=== PATIENT | female | born 1940 | race Caucasian/White ===

== ENCOUNTER 2020-12-05 10:33 | Outpatient (CLI) | payer MEDICARE, MEDICAID | END 2020-12-05 10:34 | disposition critical access hospital (66) | LOC: EMS 10:33 | DX: Z04.3 Encounter for examination and observation following other accident (principal); R53.83 Other fatigue | CPT/HCPCS: A0425; A0429 ==

== ENCOUNTER 2020-12-05 10:54 | Emergency (ER) | payer MEDICARE, MEDICAID ==
--- NOTE | 2020-12-05 11:02 | ED Physician Documentation ---
PD HPI Fall - Stated complaint Stated Complaint: GLF - History obtained from History obtained from: Patient, EMS - History of Present Illness Mechanism of injury: Unknown (patient down on floor, awake, near walker at care facility. History of unsteady with occ falls. Unwitnessed fall. No apparent LOC. Had some pain in knee and on exam, some pain with ROM of the neck. Not on anticoag. Denies head pain.) Fall distance: Standing position Where injury occurred: Other ([facility] care facility) Timing - onset: Today (within the past 1-2 hours was when last checked on) Injury(ies) location: Neck, Left Lower Extremity (some pain anterior knee.) Associated symptoms: AMS (seems baseline level of short term memory, but alert, c/w her dementia.). No: LOC, Nausea / vomiting Worsens with: Movement (of left knee and some pain on ROM of the neck.) Contributing factors: No: Anticoagulated, Intoxicated Similar symptoms before: Has not had sx before Recently seen: Not recently seen Review of Systems Unable to obtain: Dementia, Other (info from care facility) Constitutional: reports: Fatigue. denies: Fever, Weight Loss Cardiac: denies: Chest pain / pressure Respiratory: denies: Dyspnea, Cough GI: denies: Abdominal Pain, Vomiting Skin: denies: Abrasion (s), Laceration (s) Musculoskeletal: reports: Neck pain. denies: Back pain Neurologic: denies: Headache PD PAST MEDICAL HISTORY - Past Medical History Cardiovascular: Hypertension Respiratory: None Neuro: Dementia Endocrine/Autoimmune: None - Past Surgical History Cardiovascular: Pacemaker - Present Medications Home Medications: Ambulatory Orders Medication Instructions Recorded Confirmed Aspirin [[place] Aspirin] 81 mg PO DAILY 12/05/20 12/05/20 Donepezil [Aricept] 5 mg PO DAILY 12/05/20 12/05/20 Isosorbide Mononitrate ER [Imdur] 60 mg PO DAILY 12/05/20 12/05/20 Venlafaxine HCl [Effexor Xr] 150 mg PO DAILY 12/05/20 12/05/20 gemfibroziL [Lopid] 600 mg PO BID 12/05/20 12/05/20 - Allergies Allergies/Adverse Reactions: Allergies Allergy/AdvReac Type Severity Reaction Status Date / Time Qsuvpjj-Fsu-Ssr Reductase Allergy Unknown Verified 12/05/20 11:01 Inhibitor PD ED PE NORMAL - Vitals Vital signs reviewed: Yes - General General: No acute distress, Well developed/nourished. No: Alert and oriented X 3 (oriented to person and place. Poor short term memory of events this morning. ) - HEENT HEENT: Atraumatic - Neck Neck: Supple, no meningeal sign, No bony TTP (but some tender in lower left neck muscles. ), No adenopathy - Cardiac Cardiac: RRR, No murmur - Respiratory Respiratory: Clear bilaterally, Other (no chestwall tenderness. ) - Abdomen Abdomen: Soft, Non tender - Back Back: No CVA TTP, No spinal TTP - Derm Derm: Normal color, Warm and dry - Extremities Extremities: No deformity, No edema, No calf tenderness / cord, Other (left knee with some anterior tenderness. No deformity. No effusion. No noted laxity nor pain with cruciate/collateral stress testing. ) - Neuro Neuro: No motor deficit, No sensory deficit, Normal speech Eye Opening: Spontaneous Motor: Obeys Commands Verbal: Oriented GCS Score: 15 Results - Vitals Vitals: Vital Signs - 24 hr 12/05/20 12/05/20 12/05/20 11:04 13:09 14:42 Temperature 36.8 C 36.8 C Heart Rate 66 67 78 Respiratory 16 17 18 Rate Blood Pressure 122/100 H 137/71 H 134/79 H O2 Saturation 95 97 100 Oxygen O2 Source Room air - Rads (name of study) left knee Radiology: Prelim report reviewed (no acute bony process), See rad report head CT Radiology: Prelim report reviewed (age related changes; no acute injury), See rad report cervical CT Radiology: Prelim report reviewed (no fractures nor other acute osseous process or acute subluxation. ), See rad report PD MEDICAL DECISION MAKING - ED course Complexity details: reviewed results, considered differential (no notable injuries. Unwitnessed fall so unknown LOC/etc. Vitals good and she was found awake/attentive, so likely mechanical fall. Has pacemaker. ), d/w patient Departure - Departure Disposition: 01 Home, Self Care Clinical Impression: Neck pain Fall Qualifiers: Encounter type: initial encounter Qualified Code(s): W19.XXXA - Unspecified fall, initial encounter Knee strain Qualifiers: Encounter type: initial encounter Laterality: left Qualified Code(s): S86.912A - Strain of unspecified muscle(s) and tendon(s) at lower leg level, left leg, initial encounter Condition: Stable Record reviewed to determine appropriate education?: Yes Instructions: ED Sprain Knee, ED Sprain Strain Neck Comments: No signs of acute injury to the head or neck or the knee. There is some arthritis in the neck and the knee on your imaging. I would suggest continue usual medicines. Add Tylenol 500 mg 4 times a day for the next several days. Recheck if not better over the next few days. Discharge Date/Time: 12/05/20 14:43
[2020-12-05] MEDS ORDERED: ACETAMINOPHEN 325 MG TABLET PO STA (11:25)
--- NOTE | 2020-12-05 12:25 | XRAY Report ---
PROCEDURE: Knee 3 View LT INDICATIONS: fall with knee pain TECHNIQUE: 3 views of the left knee(s) were acquired. COMPARISON: None. FINDINGS: Bones: No fractures or dislocations. No suspicious bony lesions. Mild degenerative osteophytosis t hroughout the knee most prominent within the patellofemoral compartment Soft tissues: No joint effusion. No suspicious soft tissue calcifications. Small patellar enthesop hytes at the superior and inferior pole of the talus. IMPRESSION: No acute osseous abnormality. Reviewed by: Scar Jett DO on 12/05/2020 11:23 AM [facility] Approved by: Scar Jett DO on 12/05/2020 11:23 AM [facility] Station ID: [id number]
--- NOTE | 2020-12-05 12:27 | CT Report ---
PROCEDURE: HEAD WO INDICATIONS: fall with some posterior headache, mild TECHNIQUE: Noncontrast 4.5 mm thick angled axial sections acquired from the foramen magnum to the vertex. For r adiation dose reduction, the following was used: automated exposure control, adjustment of mA and/or kV according to patient size. COMPARISON: None. FINDINGS: Image quality: Excellent. CSF spaces: Basal cisterns are patent. No extra-axial fluid collections. Ventricles are normal in size and shape. Brain: No midline shift. No intracranial masses or hemorrhage. There is diffuse periventricular an d deep white matter hypoattenuation most consistent with progressive ischemic changes. Bojorquez-white mat ter interface is normal. Skull and face: Calvarium and visualized facial bones are intact, without suspicious lesions. Sinuses: Visualized sinuses and mastoids are clear. IMPRESSION: Findings consistent with microvascular ischemic changes without evidence of an acute intracranial abn ormality. Reviewed by: Scar Jett DO on 12/05/2020 11:25 AM [facility] Approved by: Scar Jett DO on 12/05/2020 11:25 AM [facility] Station ID: [id number]
--- NOTE | 2020-12-05 12:31 | CT Report ---
PROCEDURE: CERVICAL SPINE WO INDICATIONS: fall with some neck pain TECHNIQUE: Noncontrast 3 mm thick sections acquired from the skull base to the T4 level. Sagittal and coronal r eformats were then constructed. For radiation dose reduction, the following was used: automated exp osure control, adjustment of mA and/or kV according to patient size. COMPARISON: None. FINDINGS: Image quality: Excellent. Bones: No fractures or dislocations. There is reversal of the normal cervical lordosis. Visualized superior ribs are intact. Multilevel cervical spine degenerative changes. This includes at least mod erate intervertebral disc space loss at C4 C5-C6 C7 with endplate degenerative changes and calcified discs. There is mild spinal canal stenosis at these levels. There is also at least mild neural forami nal stenosis. Soft tissues: Prevertebral soft tissues are normal in thickness. No paravertebral hematomas. No ap ical pneumothoraces. IMPRESSION: No acute fracture or traumatic subluxation. Moderate multilevel cervical spondylopathy. Reviewed by: Scar Jett DO on 12/05/2020 11:30 AM [facility] Approved by: Scar Jtet DO on 12/05/2020 11:30 AM [facility] Station ID: [id number]
[2020-12-05 14:43] VITALS: BP 134/79
== END 2020-12-05 14:43 | disposition home or self-care (01) ==
LOC: ED 10:54
DX: S86.912A Strain of unspecified muscle(s) and tendon(s) at lower leg level, left leg, initial encounter (principal); W19.XXXA Unspecified fall, initial encounter; Y92.099 Unspecified place in other non-institutional residence as the place of occurrence of the external cause; M54.2 Cervicalgia; F03.90 Unspecified dementia, unspecified severity, without behavioral disturbance, psychotic disturbance, mood disturbance, and anxiety; I10 Essential (primary) hypertension; Z95.0 Presence of cardiac pacemaker
CPT/HCPCS: 70450; 72125; 73562; 99282; 99284; A9270

== ENCOUNTER 2020-12-05 14:44 | Outpatient (CLI) | payer MEDICARE, MEDICAID | END 2020-12-05 14:45 | disposition home or self-care (01) | LOC: EMS 14:44 | PROVIDERS: ATTEND Emergency Medicine | DX: F03.90 Unspecified dementia, unspecified severity, without behavioral disturbance, psychotic disturbance, mood disturbance, and anxiety (principal) | CPT/HCPCS: A0425; A0428 ==

== ENCOUNTER 2022-08-05 16:06 | Outpatient (CLI) | payer MEDICARE, MEDICAID | END 2022-08-05 16:07 | disposition critical access hospital (66) | LOC: EMS 16:06 | DX: S69.91XA Unspecified injury of right wrist, hand and finger(s), initial encounter (principal); S80.01XA Contusion of right knee, initial encounter; W18.30XA Fall on same level, unspecified, initial encounter; Y92.199 Unspecified place in other specified residential institution as the place of occurrence of the external cause | CPT/HCPCS: A0425; A0429 ==

== ENCOUNTER 2022-08-05 16:20 | Emergency (ER) | payer MEDICARE, MEDICAID ==
--- NOTE | 2022-08-05 17:00 | ED Physician Documentation ---
PD HPI MAJOR TRAUMA - Stated complaint Stated Complaint: GLF - Chief complaint Chief Complaint: Trauma Ext - History obtained from History obtained from: EMS - Additional information Additional information: 82-year-old woman brought in from dementia unit with reported fall yesterday, ground-level fall. I am unable to elicit any history from the patient due to profound dementia. The concern is for a nasal injury, right hand and right knee injuries. Reportedly has been ambulatory. Review of Systems Unable to obtain: Dementia PD PAST MEDICAL HISTORY - Past Medical History Cardiovascular: Hypertension Respiratory: None Neuro: Dementia Endocrine/Autoimmune: None - Past Surgical History Cardiovascular: Pacemaker - Present Medications Home Medications: Ambulatory Orders Medication Instructions Recorded Confirmed Aspirin [[place] Aspirin] 81 mg PO DAILY 12/05/20 12/05/20 Donepezil [Aricept] 5 mg PO DAILY 12/05/20 12/05/20 Isosorbide Mononitrate ER [Imdur] 60 mg PO DAILY 12/05/20 12/05/20 Venlafaxine HCl [Effexor Xr] 150 mg PO DAILY 12/05/20 12/05/20 gemfibroziL [Lopid] 600 mg PO BID 12/05/20 12/05/20 - Allergies Allergies/Adverse Reactions: Allergies Allergy/AdvReac Type Severity Reaction Status Date / Time atenolol Allergy Unknown Verified 08/05/22 16:46 duloxetine Allergy Unknown Verified 08/05/22 16:46 lorazepam [From Ativan] Allergy Unknown Verified 08/05/22 16:46 Wbllowe-ILY-FdE Reductase Allergy Unknown Verified 08/05/22 16:46 Inhibitor [Jsqepaw-Jvs-Jiz Reductase Inhibitor] - Social History Does the pt smoke?: No Smoking Status: Never smoker PD ED PE NORMAL - Vitals Vital signs reviewed: Yes - General General: Other (She is prevailing demented, relatively uncooperative but also nonverbal.) - HEENT HEENT: PERRL, EOMI, Other (An abrasion with swelling over the bridge of the nose) - Neck Neck: No bony TTP - Back Back: No CVA TTP, No spinal TTP - Derm Derm: Normal color, Warm and dry - Extremities Extremities: Other (There is ecchymosis with mild tenderness over the fourth and fifth metacarpals of the right hand. There is significant bruising and swelling of the right knee without obvious tenderness.) - Neuro Eye Opening: Spontaneous Motor: Localizes to Pain Verbal: Incomprehensible GCS Score: 11 Results - Vitals Vitals: Vital Signs - 24 hr 08/05/22 16:38 Temperature 37.7 C Heart Rate 71 Respiratory 14 Rate Blood Pressure 142/56 H O2 Saturation 98 Oxygen O2 Source Room air - Rads (name of study) Three-view x-ray of the right knee demonstrates a comminuted patellar fracture Radiology: Final report received, EMP read indepedently Three-view x-ray of the right hand is negative Radiology: Final report received, EMP read indepedently CT of the head and C-spine with and without trauma Radiology: Final report received, EMP read indepedently PD Medical Decision Making - ED course Complexity details: d/w family (I did discuss with point of contact, Ms. Scruggs on the chart to understand the diagnosis, need for follow-up.), d/w outside solar sales consultant (Discussed case by phone with on-call orthopedics (Melissa) who agrees with knee immobilizer and outpatient follow-up.) Departure - Departure Disposition: 01 Home, Self Care Clinical Impression: Ground-level fall Contusion of right hand Qualifiers: Encounter type: initial encounter Qualified Code(s): S60.221A - Contusion of right hand, initial encounter Severe dementia Qualifiers: Dementia type: unspecified type Dementia behavioral or psychological symptom: unspecified whether behavioral, psychotic, or mood disturbance or anxiety Qualified Code(s): F03.C0 - Unspecified dementia, severe, without behavioral disturbance, psychotic disturbance, mood disturbance, and anxiety Facial injury Qualifiers: Encounter type: initial encounter Qualified Code(s): S09.93XA - Unspecified injury of face, initial encounter Right patella fracture Qualifiers: Encounter type: initial encounter Fracture type: closed Fracture morphology: transverse Fracture alignment: displaced Qualified Code(s): S82.031A - Displaced transverse fracture of right patella, initial encounter for closed fracture Condition: Good Record reviewed to determine appropriate education?: Yes Instructions: ED Fx Patella Follow-Up: [facility] [Provider Group] - Within 1 week Comments: For the patella fracture, is much as possible she should keep the splint on. My suspicion is that may be difficult, and if she takes it off I do not think the end of the world. She should follow-up with the orthopedics office that week or so. Tylenol as needed for pain. CT of the head, face, neck were without trauma. X-ray of the right hand was negative.
--- NOTE | 2022-08-05 18:21 | XRAY Report ---
PROCEDURE: Hand 3 View RT INDICATIONS: hand inj TECHNIQUE: 3 views of the hand acquired. COMPARISON: None. FINDINGS: Bones: No acute fractures or dislocations. No suspicious bony lesions. Generalized osteopenia. Fin gers are mildly flexed throughout the exam. Degenerative changes are most prominent at the first carpometacarpal joint. Soft tissues: No suspicious soft tissue calcifications. IMPRESSION: No acute osseous abnormality. If there is clinical concern or persistent symptoms, additional imaging such as repeat radiographs or advanced imaging (e.g. CT, MRI) may be helpful for further evaluation. Reviewed by: Ellis Aguilar MD on 08/05/2022 6:20 PM PST Approved by: Ellis Aguilar MD on 08/05/2022 6:20 PM PST Station ID: [id number]
--- NOTE | 2022-08-05 18:23 | XRAY Report ---
PROCEDURE: Knee 3 View RT INDICATIONS: knee inj TECHNIQUE: 3 views of the right knee were acquired. COMPARISON: None. FINDINGS: Bones: There is a comminuted minimally displaced transverse fracture of the patella. No suspicious b lee lesions. Generalized osteopenia. Soft tissues: Moderate joint effusion. No suspicious soft tissue calcifications. IMPRESSION: Comminuted minimally displaced intra-articular fracture is seen involving the mid to inf erior patella. Moderate joint effusion. Reviewed by: Ellis Aguilar MD on 08/05/2022 6:21 PM PST Approved by: Ellis Aguilar MD on 08/05/2022 6:21 PM PST Station ID: [id number]
--- NOTE | 2022-08-05 18:32 | CT Report ---
PROCEDURE: HEAD WO INDICATIONS: head inj TECHNIQUE: Noncontrast 4.5 mm thick angled axial sections acquired from the foramen magnum to the vertex. For r adiation dose reduction, the following was used: automated exposure control, adjustment of mA and/or kV according to patient size. COMPARISON: CT head 12/05/2020. FINDINGS: Image quality: Excellent. CSF spaces: Basal cisterns are patent. No extra-axial fluid collections. Ventricles are normal in size and shape. Brain: No midline shift. No intracranial masses or acute hemorrhage. Hypodensities in the subcortic al and periventricular white matter are consistent with chronic microvascular ischemic changes. Skull and face: Calvarium and visualized facial bones are intact, without suspicious lesions. Sinuses: Visualized sinuses and mastoids are clear. IMPRESSION: 1.No acute intracranial abnormality. 2.Mild chronic microvascular ischemic changes. Reviewed by: Ellis Aguilar MD on 08/05/2022 6:31 PM PST Approved by: Ellis Aguilar MD on 08/05/2022 6:31 PM PST Station ID: [id number]
--- NOTE | 2022-08-05 18:35 | CT Report ---
PROCEDURE: CERVICAL SPINE WO INDICATIONS: head inj TECHNIQUE: Noncontrast 3 mm thick sections acquired from the skull base to the T4 level. Sagittal and coronal r eformats were then constructed. For radiation dose reduction, the following was used: automated exp osure control, adjustment of mA and/or kV according to patient size. COMPARISON: Cervical spine CT 12/05/2020. FINDINGS: Image quality: Excellent. Bones: No fractures or dislocations. Visualized superior ribs are intact. Multilevel disc space na rrowing and degenerative endplate changes are seen. There is multilevel vertebral joint and facet hyp ertrophy. Soft tissues: Prevertebral soft tissues are normal in thickness. No paravertebral hematomas. No ap ical pneumothoraces. IMPRESSION: No acute cervical spine fracture or subluxation. Multilevel spondylosis. Reviewed by: Ellis Aguilar MD on 08/05/2022 6:34 PM PST Approved by: Ellis Aguilar MD on 08/05/2022 6:34 PM PST Station ID: [id number]
--- NOTE | 2022-08-05 18:38 | CT Report ---
PROCEDURE: MAXILLOFACIAL WO INDICATIONS: face innj TECHNIQUE: Noncontrast 1.5 mm thick axial images acquired from the mandible through the frontal sinuses, with co valery and sagittal reformatting. For radiation dose reduction, the following was used: automated ex posure control, adjustment of mA and/or kV according to patient size. COMPARISON: None. FINDINGS: Image quality: Excellent. Bones and teeth: Orbital griffith are intact. Sinus griffith show no fracture or deformity. Nasal bones and septum are intact. Visualized portions of the mandible demonstrate no fractures or subluxation. Zygomatic arches are intact. Pterygoid plates are intact. Visualized portions of the skull base an d auditory canals are intact. Degenerative changes are seen in the cervical spine. Sinuses: Paranasal sinuses are aerated, without fluid levels, mucosal thickening, or mucoceles. Mas toid air cells are aerated. Soft tissues: No edema, masses, or fluid collections. No enlarged lymph nodes. No soft tissue lace rations or debris. Vascular: Visualized vascular structures appear normal in the absence of contrast. Bony vascular fo ramina and canals are intact. IMPRESSION: No acute facial fracture identified. Reviewed by: Ellis Aguilar MD on 08/05/2022 6:36 PM PST Approved by: Ellis Aguilar MD on 08/05/2022 6:36 PM PST Station ID: [id number]
[2022-08-05 21:44] VITALS: BP 129/89
== END 2022-08-05 21:38 | disposition home or self-care (01) ==
LOC: EDUNIT# → ED 16:20
DX: S60.221A Contusion of right hand, initial encounter (principal); S00.31XA Abrasion of nose, initial encounter; S82.031A Displaced transverse fracture of right patella, initial encounter for closed fracture; W18.30XA Fall on same level, unspecified, initial encounter; F03.90 Unspecified dementia, unspecified severity, without behavioral disturbance, psychotic disturbance, mood disturbance, and anxiety; R41.0 Disorientation, unspecified
CPT/HCPCS: 99283; 99284

== ENCOUNTER 2022-08-05 21:39 | Outpatient (CLI) | payer MEDICARE, MEDICAID | END 2022-08-05 21:40 | disposition home or self-care (01) | LOC: EMS 21:39 | PROVIDERS: ATTEND Emergency Medicine | DX: S82.001A Unspecified fracture of right patella, initial encounter for closed fracture (principal); W19.XXXA Unspecified fall, initial encounter; F03.90 Unspecified dementia, unspecified severity, without behavioral disturbance, psychotic disturbance, mood disturbance, and anxiety; R41.0 Disorientation, unspecified | CPT/HCPCS: A0425; A0428 ==

== ENCOUNTER 2022-09-21 09:28 | Outpatient (CLI) | payer MEDICARE, MEDICAID ==
--- NOTE | 2022-09-21 10:34 | XRAY Report ---
PROCEDURE: Knee 3 View RT INDICATIONS: RIGHT PATELLA FRACTURE TECHNIQUE: 3 views of the right knee(s) were acquired. COMPARISON: None. FINDINGS: Bones: Subacute comminuted minimally displaced patellar fracture. No other fractures or dislocations . No suspicious bony lesions. Soft tissues: No joint effusion. No suspicious soft tissue calcifications. IMPRESSION: Subacute, comminuted, minimally displaced patellar fracture. Reviewed by: Melchor Nair MD on 09/21/2022 10:33 AM [facility] Approved by: Melchor Nair MD on 09/21/2022 10:33 AM [facility] Station ID: [id number]
== END 2022-09-21 09:29 | disposition home or self-care (01) ==
LOC: DI 09:28
PROVIDERS: ATTEND Nurse Practitioner Family
DX: S82.041A Displaced comminuted fracture of right patella, initial encounter for closed fracture (principal)

== ENCOUNTER 2022-10-12 09:18 | Outpatient (CLI) | payer MEDICAID | END 2022-10-12 23:59 | disposition critical access hospital (66) | LOC: EMS 09:18 | DX: R41.82 Altered mental status, unspecified (principal); R46.89 Other symptoms and signs involving appearance and behavior; R56.9 Unspecified convulsions | CPT/HCPCS: A0425; A0429; A0999 ==

== ENCOUNTER 2022-10-12 09:37 | Emergency (ER) | payer MEDICARE, MEDICAID ==
[2022-10-12 10:02] LABS: BASOPHILS % (AUTO) 0.7 %; EOSINOPHILS % (AUTO) 0.4 %; HCT - HEMATOCRIT 36.9 % (37.0-47.0); HGB - HEMOGLOBIN 11.9 g/dL (12.0-16.0); LYMPHOCYTES # (AUTO) 1.5 10^3/uL (1.5-3.5); LYMPHOCYTES % (AUTO) 26.3 %; MEAN CORPUSCULAR HEMOGLOBIN 31.1 pg (27.0-31.0); MEAN CORPUSCULAR HGB CONC 32.2 g/dL (32.0-36.0); MEAN CORPUSCULAR VOLUME 96.3 fL (81.0-99.0); MONOCYTES # (AUTO) 0.4 10^3/uL (0.0-1.0); MONOCYTES % (AUTO) 6.9 %; NEUTROPHILS # (AUTO) 3.5 10^3/uL (1.5-6.6); NEUTROPHILS % (AUTO) 63.9 %; PLT - PLATELET COUNT 265 10^3/uL (130-450); RED BLOOD COUNT 3.83 10^6/uL (4.20-5.40); RED CELL DISTRIBUTION WIDTH 13.4 % (12.0-15.0); WHITE BLOOD COUNT 5.5 x10^3/uL (4.8-10.8)
[2022-10-12 10:15] LABS: ALBUMIN 3.4 g/dL (3.2-5.5); BILIRUBIN,TOTAL 0.5 mg/dL (0.2-1.0); CALCIUM 9.2 mg/dL (8.5-10.3); CREATININE 1.1 mg/dL (0.4-1.0); POTASSIUM 3.6 mmol/L (3.5-5.0); TOTAL PROTEIN 7.6 g/dL (6.7-8.2)
[2022-10-12 10:16] LABS: ALBUMIN/GLOBULIN RATIO 0.8 (1.0-2.2)
--- NOTE | 2022-10-12 10:22 | CT Report ---
PROCEDURE: HEAD WO INDICATIONS: seizure like activity TECHNIQUE: Noncontrast 4.5 mm thick angled axial sections acquired from the foramen magnum to the vertex. For r adiation dose reduction, the following was used: automated exposure control, adjustment of mA and/or kV according to patient size. COMPARISON: 08/05/2022. FINDINGS: Image quality: Excellent. CSF spaces: Basal cisterns are patent. No extra-axial fluid collections. Ventricles are normal in size and shape. Brain: No midline shift. There is age-related volume loss and mild to moderate periventricular and deep white matter chronic small vessel ischemic changes. No intracranial masses or hemorrhage. Bojorquez- white matter interface is normal. Skull and face: Calvarium and visualized facial bones are intact, without suspicious lesions. Sinuses: Visualized sinuses and mastoids are clear. IMPRESSION: No CT evidence of acute intracranial abnormalities. No significant changes from previous study. Reviewed by: Gen Chiang MD on 10/12/2022 9:21 AM [facility] Approved by: Gen Chiang MD on 10/12/2022 9:21 AM [facility] Station ID: [id number]
--- NOTE | 2022-10-12 10:28 | ED Physician Documentation ---
History of Present Illness - Stated complaint Stated Complaint: AMS - Chief complaint Chief Complaint: Neuro - History obtained from History obtained from: EMS - Additonal information Additional information: The patient is brought to the emergency department by EMS for chief complaint of possible seizure. The patient lives in the memory care unit, and had just been wheeled down to breakfast when she suddenly cried out and then had a brief episode of shaking. It is not clear whether the patient was awake during the shaking episode or not, though medics say it sounds like she was. She has no history of seizures and they do not find any incontinence or bite moya on her tongue. There was no postictal for her head and in fact, the patient was back at baseline, which is awake and calm, but nonverbal/noncommunicative, now. The staff at home have reported no recent illness. No other complaints at this time. PD PAST MEDICAL HISTORY - Past Medical History Cardiovascular: Hypertension Respiratory: None Neuro: Dementia Endocrine/Autoimmune: None - Past Surgical History Cardiovascular: Pacemaker - Present Medications Home Medications: Ambulatory Orders Medication Instructions Recorded Confirmed Aspirin [[place]orte Aspirin] 81 mg PO DAILY 12/05/20 12/05/20 Donepezil [Aricept] 5 mg PO DAILY 12/05/20 12/05/20 Isosorbide Mononitrate ER [Imdur] 60 mg PO DAILY 12/05/20 12/05/20 Venlafaxine HCl [Effexor Xr] 150 mg PO DAILY 12/05/20 12/05/20 gemfibroziL [Lopid] 600 mg PO BID 12/05/20 12/05/20 - Allergies Allergies/Adverse Reactions: Allergies Allergy/AdvReac Type Severity Reaction Status Date / Time atenolol Allergy Unknown Verified 10/12/22 09:47 duloxetine Allergy Unknown Verified 10/12/22 09:47 lorazepam [From Ativan] Allergy Unknown Verified 10/12/22 09:47 Llgxhuz-HHZ-HdV Reductase Allergy Unknown Verified 10/12/22 09:47 Inhibitor [Kyycnzj-Aol-Snw Reductase Inhibitor] - Social History Does the pt smoke?: No Smoking Status: Never smoker PD ED PE NORMAL - Vitals Vital signs reviewed: Yes - General General: No acute distress, Well developed/nourished, Other (Awake, but does not make eye contact. Noncommunicative.) - HEENT HEENT: Atraumatic, PERRL, EOMI, Moist mucous membranes - Neck Neck: Supple, no meningeal sign - Cardiac Cardiac: RRR, No murmur, Strong equal pulses - Respiratory Respiratory: No respiratory distress, Clear bilaterally - Abdomen Abdomen: Soft, Non tender, Non distended - Derm Derm: Normal color, Warm and dry, No rash - Extremities Extremities: No deformity - Psych Psych: Normal mood, Normal affect Results - Vitals Vitals: Oxygen O2 Source Room air - Labs Labs: Laboratory Tests 10/12/22 10/12/22 09:56 09:56 WBC 5.5 RBC 3.83 L Hgb 11.9 L Hct 36.9 L MCV 96.3 MCH 31.1 H MCHC 32.2 RDW 13.4 Plt Count 265 MPV 10.0 Neut # (Auto) 3.5 Lymph # (Auto) 1.5 Marin # (Auto) 0.4 Eos # (Auto) 0.0 Baso # (Auto) 0.0 Absolute Nucleated RBC 0.00 Nucleated RBC % 0.0 Sodium 139 Potassium 3.6 Chloride 107 Carbon Dioxide 25 Anion Gap 7.0 BUN 32 H Creatinine 1.1 H Estimated GFR (MDRD) 48 L Glucose 123 H Calcium 9.2 Total Bilirubin 0.5 AST 19 ALT 17 Alkaline Phosphatase 55 Total Protein 7.6 Albumin 3.4 Globulin 4.2 Albumin/Globulin Ratio 0.8 L Lipase 32 PD Medical Decision Making - ED course Complexity details: reviewed results, re-evaluated patient, considered differential ED course: The pt was at baseline by the time of arrival in the ED. It was not clear what had happened or caused the pt's event at the SNF, and as such, the pt was worked up with CBC, ER abdominal panel, and CT head, all of which were ordered and reviewed by me, and unremarkable. The pt was stable for d/c home. Her shelter is advised that the pt may follow up with her PCP, should her POA wish further evaluation for this event. Departure - Departure Disposition: 01 Home, Self Care Clinical Impression: Altered mental status Qualifiers: Altered mental status type: unspecified Qualified Code(s): R41.82 - Altered mental status, unspecified Condition: Stable Instructions: ED Altered Loc Comments: All of the labs and the CT scan of the head look good. There is no evidence of an emergent condition and Ms. Lee has been calm in our emergency department. It is not clear whether the shaking that was observed at the [facility] was loss control representative of a seizure, though given the lack of other evidence of seizure, as well as the lack of a postictal period, this is unlikely. If it is desired that further investigation should be made regarding this, then her POA may set up a doctor's appointment for follow-up. At this point in time though, there is no evidence of an emergent condition and she is stable to return. Discharge Date/Time: 10/12/22 12:36
[2022-10-12 12:36] VITALS: BP 157/104
== END 2022-10-12 12:36 | disposition home or self-care (01) ==
LOC: EDUNIT# → ED 09:37
DX: R41.82 Altered mental status, unspecified (principal); I10 Essential (primary) hypertension; F03.90 Unspecified dementia, unspecified severity, without behavioral disturbance, psychotic disturbance, mood disturbance, and anxiety; Z79.82 Long term (current) use of aspirin
CPT/HCPCS: 36415; 80053; 83690; 85025; 99283; 99284

== ENCOUNTER 2022-10-12 12:41 | Outpatient (CLI) | payer MEDICAID | END 2022-10-12 23:59 | disposition home or self-care (01) | LOC: EMS 12:41 | PROVIDERS: ATTEND Emergency Medicine | DX: R41.0 Disorientation, unspecified (principal) | CPT/HCPCS: A0425; A0429 ==

== ENCOUNTER 2023-02-22 06:48 | Outpatient (CLI) | payer MEDICARE | END 2023-02-22 23:59 | disposition critical access hospital (66) | LOC: EMS 06:48 | DX: S00.83XA Contusion of other part of head, initial encounter (principal); S80.212A Abrasion, left knee, initial encounter; W18.30XA Fall on same level, unspecified, initial encounter; Y92.099 Unspecified place in other non-institutional residence as the place of occurrence of the external cause | CPT/HCPCS: A0425; A0429 ==

== ENCOUNTER 2023-02-22 07:08 | Emergency (ER) | payer MEDICAID, MEDICARE ==
--- NOTE | 2023-02-22 07:10 | ED Physician Documentation ---
PD HPI HEAD INJURY - Stated complaint Stated Complaint: GLF - History obtained from History obtained from: EMS, Caregiver - History of Present Illness Mechanism of head injury: Fell Where head injury occurred: Other ([facility]) Timing - onset: Today (The fall was unwitnessed but caregivers did hear the fall and went to her room right off. She was awake and interacting. Swelling and bruising on the forehead. No other apparent injury. She is not on blood thinners.) Associated symptoms: No: LOC, AMS (reportedly interacting at baseline but usually does not answer questions due to dementia. Unable to assess interaction therefore.) Contributing factors: No: Anticoagulated Recently seen: Not recently seen Review of Systems Unable to obtain: Dementia PD PAST MEDICAL HISTORY - Past Medical History Cardiovascular: Hypertension Respiratory: None Neuro: Dementia Endocrine/Autoimmune: None - Past Surgical History Cardiovascular: Pacemaker - Present Medications Home Medications: Ambulatory Orders Medication Instructions Recorded Confirmed Venlafaxine HCl [Effexor Xr] 150 mg PO DAILY 12/05/20 02/22/23 gemfibroziL [Lopid] 600 mg PO BID 12/05/20 02/22/23 Isosorbide Mononitrate ER [Imdur] 30 mg PO DAILY 02/22/23 02/22/23 Lisinopril [Zestril] 20 mg PO DAILY 02/22/23 02/22/23 Melatonin 3 mg PO HS 02/22/23 02/22/23 amLODIPine [Norvasc] 5 mg PO DAILY 02/22/23 02/22/23 - Allergies Allergies/Adverse Reactions: Allergies Allergy/AdvReac Type Severity Reaction Status Date / Time atenolol Allergy Unknown Verified 02/22/23 07:34 duloxetine Allergy Unknown Verified 02/22/23 07:34 lorazepam [From Ativan] Allergy Unknown Verified 02/22/23 07:34 Fzahnon-PLI-GzN Reductase Allergy Unknown Verified 02/22/23 07:34 Inhibitor [Glvfbcb-Wug-Tku Reductase Inhibitor] - Living Situation Living Arrangement: reports: intermediate - Social History Does the pt smoke?: No Smoking Status: Never smoker PD ED PE NORMAL - Vitals Vital signs reviewed: Yes - General General: No acute distress, Well developed/nourished, Other (she does look me in the eyes as I talk with her. Tries to answer but not really intelligible. No distress. ) - HEENT HEENT: Other (ounded bruising contusion left forehead. Mild local tenderness. ) - Neck Neck: Supple, no meningeal sign, No bony TTP, Other (some tender in lateral neck muscles. ) - Respiratory Respiratory: No respiratory distress, Clear bilaterally, Other (no chestwall tenderness. ) - Abdomen Abdomen: Soft, Non tender - Derm Derm: Normal color, Warm and dry - Extremities Extremities: Normal ROM s pain (some redness of right knee but no bony tender and good ROM. ) - Neuro Neuro: No motor deficit, No sensory deficit Eye Opening: Spontaneous Motor: Obeys Commands (learning and development associate my hands when I hold hers. She reaches out to touch my face gently.) Verbal: Incomprehensible GCS Score: 12 Results - Vitals Vitals: Vital Signs - 24 hr 02/22/23 02/22/23 02/22/23 07:35 08:24 09:32 Temperature 36.6 C 36.7 C Heart Rate 59 L 73 64 Respiratory 16 18 16 Rate Blood Pressure 151/67 H 150/82 H 157/83 H O2 Saturation 95 98 95 Oxygen O2 Source Room air - Rads (name of study) head CT Relevant Findings:: Prelim report reviewed (no ICH nor acute process.), EMP independent interpretation of test cervical spine CT Relevant Findings:: Prelim report reviewed (no fractures; no acute process. ), EMP independent interpretation of test PD Medical Decision Making - ED course Complexity details: reviewed results (she had apparent fall with contusion back of head. Can get CT to eval head and cervical spine. ), considered differential, d/w patient (EMS conveys info from caregivers at SNF. ) Departure - Departure Disposition: 01 Home, Self Care Clinical Impression: Fall, accidental, Forehead contusion, Advanced dementia Condition: Stable Record reviewed to determine appropriate education?: Yes Comments: We did a CT scan of the head and neck. No acute injuries noted. Tylenol every 4-6 hours if needed for pains. You can use some ice or cool towels to the forehead if needed for swelling but otherwise no particular treatment needed. Forms: PCP List Discharge Date/Time: 02/22/23 09:59
--- NOTE | 2023-02-22 08:06 | CT Report ---
PROCEDURE: CERVICAL SPINE WO INDICATIONS: fall, struck frontal head TECHNIQUE: Noncontrast 3 mm thick sections acquired from the skull base to the T4 level. Sagittal and coronal r eformats were then constructed. For radiation dose reduction, the following was used: automated exp osure control, adjustment of mA and/or kV according to patient size. COMPARISON: None. FINDINGS: Image quality: Excellent. Bones: No fractures or dislocations. Visualized superior ribs are intact. Cervical spondylosis. Par tially calcified left paracentral disc protrusion at C4-C5 results in a degree of canal stenosis. The re is also canal stenosis at C5-C6. There is uncovertebral joint hypertrophy at multiple levels resul ting in bilateral foraminal narrowing at C4-C5 through C6-C7. Soft tissues: Prevertebral soft tissues are normal in thickness. No paravertebral hematomas. No ap ical pneumothoraces. IMPRESSION: 1. No acute cervical fracture or dislocation. 2. Cervical spondylosis. Reviewed by: Melchor Nair MD on 02/22/2023 8:05 AM PDT Approved by: Melchor Nair MD on 02/22/2023 8:05 AM PDT Station ID: [id number]
--- NOTE | 2023-02-22 08:08 | CT Report ---
PROCEDURE: HEAD WO INDICATIONS: fall, struck frontal head; dementia TECHNIQUE: Noncontrast 4.5 mm thick angled axial sections acquired from the foramen magnum to the vertex. For r adiation dose reduction, the following was used: automated exposure control, adjustment of mA and/or kV according to patient size. COMPARISON: 08/05/2022. FINDINGS: Image quality: Excellent. CSF spaces: Basal cisterns are patent. No extra-axial fluid collections. Ventricles are normal in size and shape. Brain: No midline shift. No intracranial masses or hemorrhage. Bojorquez-white matter interface is norm al. Age-related Loss and mild small vessel ischemic change. Intracranial carotid calcifications. Skull and face: There is a superficial left forehead hematoma. Calvarium and visualized facial bones are intact, without suspicious lesions. Sinuses: Visualized sinuses and mastoids are clear. IMPRESSION: No acute intracranial pathology Age-related volume loss and mild small vessel ischemic change. Left forehead superficial hematoma. Reviewed by: Melchor Nair MD on 02/22/2023 8:07 AM PDT Approved by: Melchor Nair MD on 02/22/2023 8:07 AM PDT Station ID: [id number]
[2023-02-22 09:37] VITALS: BP 157/83
== END 2023-02-22 09:59 | disposition home or self-care (01) ==
LOC: EDUNIT# → ED 07:08
DX: S00.83XA Contusion of other part of head, initial encounter (principal); W18.30XA Fall on same level, unspecified, initial encounter; Y92.129 Unspecified place in nursing home as the place of occurrence of the external cause; F03.90 Unspecified dementia, unspecified severity, without behavioral disturbance, psychotic disturbance, mood disturbance, and anxiety
CPT/HCPCS: 99283; 99284

== ENCOUNTER 2023-02-22 09:48 | Outpatient (CLI) | payer MEDICARE | END 2023-02-22 23:59 | disposition home or self-care (01) | LOC: EMS 09:48 | PROVIDERS: ATTEND Emergency Medicine | DX: R41.0 Disorientation, unspecified (principal); S00.12XA Contusion of left eyelid and periocular area, initial encounter; W19.XXXA Unspecified fall, initial encounter | CPT/HCPCS: A0425; A0428 ==

== ENCOUNTER 2023-03-27 08:24 | Outpatient (CLI) | payer MEDICAID | END 2023-03-27 23:59 | disposition critical access hospital (66) | LOC: EMS 08:24 | DX: S09.90XA Unspecified injury of head, initial encounter (principal); W07.XXXA Fall from chair, initial encounter; Y92.099 Unspecified place in other non-institutional residence as the place of occurrence of the external cause | CPT/HCPCS: A0425; A0429; A0999 ==

== ENCOUNTER 2023-03-27 08:51 | Emergency (ER) | payer MEDICAID, MEDICARE ==
--- NOTE | 2023-03-27 09:13 | ED Physician Documentation ---
PD HPI Fall - Stated complaint Stated Complaint: GLF - Chief complaint Chief Complaint: Trauma Hd/Nk - History obtained from History obtained from: EMS, Caregiver (fell forward from her chair and struck forehead. No reported LOC. Acting at baseline. Swelling forehead.) - History of Present Illness Mechanism of injury: Lost balance Fall distance: Sitting position Where injury occurred: Other (Dementia care facility.) Timing - onset: Today Injury(ies) location: Face (right forehead) Associated symptoms: No: LOC, AMS, Nausea / vomiting Worsens with: Palpation Contributing factors: No: Anticoagulated Recently seen: Not recently seen Review of Systems Unable to obtain: Dementia PD PAST MEDICAL HISTORY - Past Medical History Cardiovascular: Hypertension Respiratory: None Neuro: Dementia Endocrine/Autoimmune: None - Past Surgical History Past Surgical History: Yes Cardiovascular: Pacemaker - Present Medications Home Medications: Ambulatory Orders Medication Instructions Recorded Confirmed Venlafaxine HCl [Effexor Xr] 150 mg PO DAILY 12/05/20 03/27/23 gemfibroziL [Lopid] 300 mg PO BID 12/05/20 03/27/23 Isosorbide Mononitrate ER [Imdur] 30 mg PO DAILY 02/22/23 03/27/23 Lisinopril [Zestril] 20 mg PO DAILY 02/22/23 03/27/23 Melatonin 3 mg PO HS 02/22/23 03/27/23 amLODIPine [Norvasc] 5 mg PO DAILY 02/22/23 03/27/23 Acetaminophen [Tylenol] 650 mg PO Q6H PRN 03/27/23 03/27/23 Bisacodyl Supp [Dulcolax Supp] 10 mg DE BID PRN 03/27/23 03/27/23 Loperamide [Imodium] 2 mg PO QID PRN 03/27/23 03/27/23 Mag Hydrox/Aluminum Hyd/Simeth 30 ml PO Q4HR PRN 03/27/23 03/27/23 [Antacid Anti-Gas Max Str Liq] Magnesium Hydroxide [Milk of 30 ml PO PRN PRN 03/27/23 03/27/23 Magnesia] - Allergies Allergies/Adverse Reactions: Allergies Allergy/AdvReac Type Severity Reaction Status Date / Time atenolol Allergy Unknown Verified 03/27/23 08:59 duloxetine Allergy Unknown Verified 03/27/23 08:59 lorazepam [From Ativan] Allergy Unknown Verified 03/27/23 08:59 Vzsfjwi-PJX-NwX Reductase Allergy Unknown Verified 03/27/23 08:59 Inhibitor [Lrwmvax-Brz-Fre Reductase Inhibitor] - Social History Does the pt smoke?: No Smoking Status: Never smoker - Immunizations Immunizations are current?: No PD ED PE NORMAL - Vitals Vital signs reviewed: Yes - General General: No acute distress, Well developed/nourished, Other (mumbling speech, does not answer questions but stares back at my gaze. ) - HEENT HEENT: PERRL, EOMI, Other (right forehead with focal area of tenderness and swelling about 3 cm diameter and raaised. ) - Neck Neck: Supple, no meningeal sign, No bony TTP - Respiratory Respiratory: Clear bilaterally, Other (no apparent chestwall tenderness. ) - Abdomen Abdomen: Soft, Non tender - Derm Derm: Normal color, Warm and dry - Extremities Extremities: Normal ROM s pain - Neuro Neuro: No motor deficit, No sensory deficit Results - Vitals Vitals: Vital Signs - 24 hr 03/27/23 03/27/23 08:59 09:03 Temperature 36.5 C Heart Rate 64 81 Respiratory 16 20 Rate Blood Pressure 151/83 H 143/61 H O2 Saturation 95 100 Oxygen O2 Source Room air - Rads (name of study) head CT Relevant Findings:: Prelim report reviewed (forehead swelling. No ICH nor calvarial fracture. ), EMP independent interpretation of test cervical spine CT Relevant Findings:: Prelim report reviewed (no fractures. Diffuse arthritic changes. ), EMP independent interpretation of test PD Medical Decision Making - ED course Complexity details: reviewed results (CT head and neck without acute injuries. ), considered differential, d/w patient (she has severe dementia so not very informative, also makes symptoms assessment difficult, so can get CTs scans since ROS not available from her, and exam not reliable without verbal feedback. ) Departure - Departure Disposition: 01 Home, Self Care Clinical Impression: Fall, accidental, Forehead contusion Condition: Stable Instructions: ED Contusion Scalp Comments: Your CT of the cervical spine does not show any fractures. There are arthritic changes noted. Your CT of the head shows the scalp contusion on the outside. No fractures bleeding or swelling inside the cranium. Continue usual medications and activities. Ice or cool towels periodically to the swollen area as needed. Tylenol 500 mg 4 times daily if needed for pains. I would anticipate improvement in the swelling over several days to a week. Given the location of it, you will likely develop some bruising on the lower part of the forehead and even around the eye as blood from the hematoma on the forehead estes she is downward with gravity. Not to be worried if that develops. Forms: PCP List Discharge Date/Time: 03/27/23 13:36
[2023-03-27] MEDS ORDERED: ACETAMINOPHEN 325 MG TABLET PO STA (09:28)
[2023-03-27 09:29] VITALS: BP 143/61; O2SAT 100
--- NOTE | 2023-03-27 11:29 | CT Report ---
PROCEDURE: HEAD WO INDICATIONS: fall, struck forehead; dementia TECHNIQUE: Noncontrast 4.5 mm thick angled axial sections acquired from the foramen magnum to the vertex. For r adiation dose reduction, the following was used: automated exposure control, adjustment of mA and/or kV according to patient size. COMPARISON: 02/22/2023, 10/12/2022. Correlation is made with the accompanying cervical spine CT. FINDINGS: Image quality: Excellent. CSF spaces: Basal cisterns are patent. No extra-axial fluid collections. Ventricles are normal in size and shape. Brain: No midline shift. No intracranial masses or hemorrhage. Bojorquez-white matter interface is norm al. Skull and face: There is a new right scalp forehead hematoma. No underlying calvarial fracture is se en. Calvarium and visualized facial bones are intact, without suspicious lesions. Sinuses: Visualized sinuses and mastoids are clear. IMPRESSION: There is a new right scalp forehead hematoma seen. Negative for a displaced calvarial fracture. No intracranial hemorrhage is seen. No significant intracranial abnormality is seen. Reviewed by: Matti Hess MD on 03/27/2023 10:27 AM MELLISA Approved by: Matti Hess MD on 03/27/2023 10:27 AM MELLISA Station ID: [id number]
--- NOTE | 2023-03-27 11:31 | CT Report ---
PROCEDURE: CERVICAL SPINE WO INDICATIONS: fall, struck front head; dementia TECHNIQUE: Noncontrast 3 mm thick sections acquired from the skull base to the T4 level. Sagittal and coronal r eformats were then constructed. For radiation dose reduction, the following was used: automated exp osure control, adjustment of mA and/or kV according to patient size. COMPARISON: 02/22/2023, 08/05/2022. Correlation is made with the accompanying head CT. FINDINGS: Image quality: Diagnostic. Bones: No fractures or dislocations. Visualized superior ribs are intact. There is moderate disc space narrowing seen at C3-C4 and C4-C5, moderate to severe disc space narrowi ng seen at C6-C7. Endplate irregularity and sclerosis can be seen, which is worst at C6-C7 from poste riorly directed endplate osteophytes are seen, which are worst at C6-C7. Partially bridging anterior osteophytes can be seen C4-C7. Soft tissues: Prevertebral soft tissues are normal in thickness. No paravertebral hematomas. No ap ical pneumothoraces. Atherosclerotic calcification is seen. IMPRESSION: Negative for acute fracture. Cervical spine degenerative changes are seen, which are worst at C6-C7. Reviewed by: Matti Hess MD on 03/27/2023 10:30 AM MELLISA Approved by: Matti Hess MD on 03/27/2023 10:30 AM MELLISA Station ID: [id number]
== END 2023-03-27 13:36 | disposition home or self-care (01) ==
LOC: EDUNIT# → ED 08:51
DX: S00.83XA Contusion of other part of head, initial encounter (principal); W07.XXXA Fall from chair, initial encounter; I10 Essential (primary) hypertension; Z95.0 Presence of cardiac pacemaker
CPT/HCPCS: 93005; 99283; 99284

== ENCOUNTER 2023-03-27 13:34 | Outpatient (CLI) | payer MEDICAID | END 2023-03-27 23:59 | disposition home or self-care (01) | LOC: EMS 13:34 | PROVIDERS: ATTEND Emergency Medicine | DX: R41.0 Disorientation, unspecified (principal); F03.90 Unspecified dementia, unspecified severity, without behavioral disturbance, psychotic disturbance, mood disturbance, and anxiety | CPT/HCPCS: A0425; A0428 ==

== ENCOUNTER 2023-10-20 07:42 | Outpatient (CLI) | payer MEDICARE, MEDICAID | END 2023-10-20 23:59 | disposition critical access hospital (66) | LOC: EMS 07:42 | DX: R56.9 Unspecified convulsions (principal) | CPT/HCPCS: A0425; A0429 ==

== ENCOUNTER 2023-10-20 08:01 | Emergency (ER) | payer MEDICARE, MEDICAID ==
--- NOTE | 2023-10-20 08:59 | ED Physician Documentation ---
PD HPI SEIZURE - Stated complaint Stated Complaint: SZ/GLF - Chief complaint Chief Complaint: Neuro - History obtained from History obtained from: Family, EMS, Caregiver - History of Present Illness Timing - onset: Today PD PAST MEDICAL HISTORY - Past Medical History Cardiovascular: Hypertension Respiratory: None Neuro: Dementia Endocrine/Autoimmune: None - Past Surgical History Past Surgical History: Yes Cardiovascular: Pacemaker - Present Medications Home Medications: Ambulatory Orders Medication Instructions Recorded Confirmed Venlafaxine HCl [Effexor Xr] 75 mg PO DAILY 12/05/20 10/20/23 gemfibroziL [Lopid] 300 mg PO BID 12/05/20 10/20/23 Isosorbide Mononitrate ER [Imdur] 10 mg PO BID 02/22/23 10/20/23 Lisinopril [Zestril] 20 mg PO DAILY 02/22/23 10/20/23 Melatonin 3 mg PO HS 02/22/23 10/20/23 amLODIPine [Norvasc] 5 mg PO DAILY 02/22/23 10/20/23 Acetaminophen [Tylenol] 650 mg PO Q6H PRN 03/27/23 10/20/23 Bisacodyl Supp [Dulcolax Supp] 10 mg ME BID PRN 03/27/23 10/20/23 Loperamide [Imodium] 2 mg PO QID PRN 03/27/23 10/20/23 Mag Hydrox/Aluminum Hyd/Simeth 30 ml PO Q4HR PRN 03/27/23 10/20/23 [Antacid Anti-Gas Max Str Liq] Magnesium Hydroxide [Milk of 30 ml PO PRN PRN 03/27/23 10/20/23 Magnesia] busPIRone [Buspar] 5 mg PO BID 10/20/23 10/20/23 cephALEXin [Keflex] 500 mg PO TID #18 cap 10/20/23 levETIRAcetam [Keppra] 250 mg PO BID #60 tablet 10/20/23 - Allergies Allergies/Adverse Reactions: Allergies Allergy/AdvReac Type Severity Reaction Status Date / Time atenolol Allergy Unknown Verified 03/27/23 08:59 duloxetine Allergy Unknown Verified 03/27/23 08:59 lorazepam [From Ativan] Allergy Unknown Verified 03/27/23 08:59 NSAIDS (Non-Steroidal Allergy Unknown Verified 10/20/23 08:48 Anti-Inflamma Atbhtad-SYP-FaB Reductase Allergy Unknown Verified 03/27/23 08:59 Inhibitor [Xmfihlh-Sfk-Cfq Reductase Inhibitor] - Social History Does the pt smoke?: No Smoking Status: Never smoker Does the pt drink ETOH?: No Does the pt have substance abuse?: No - Immunizations Immunizations are current?: No Results - Vitals Vitals: Vital Signs - 24 hr 10/20/23 10/20/23 10/20/23 08:07 08:11 08:41 Temperature 36.3 C L 36.2 C L Heart Rate 62 57 L 54 L Respiratory 12 12 13 Rate Blood Pressure 139/58 H 120/54 L O2 Saturation 84 L 96 100 If not protocol 2 4 : Oxygen Flow, liters/minute 10/20/23 10/20/23 10/20/23 09:01 09:30 10:00 Temperature 36.0 C L Heart Rate 55 L 60 72 Respiratory 15 18 15 Rate Blood Pressure 122/56 L 134/68 H 150/69 H O2 Saturation 99 98 98 If not protocol 3 3 2 : Oxygen Flow, liters/minute 10/20/23 10/20/23 10/20/23 10:49 11:00 11:30 Temperature 36.1 C L Heart Rate 65 58 L 67 Respiratory 12 17 16 Rate Blood Pressure 145/78 H 145/78 H 130/110 H O2 Saturation 98 95 95 If not protocol : Oxygen Flow, liters/minute 10/20/23 10/20/23 10/20/23 12:13 13:10 13:37 Temperature Heart Rate 86 82 93 Respiratory 13 16 21 Rate Blood Pressure 147/109 H 149/85 H 149/89 H O2 Saturation 94 92 96 If not protocol : Oxygen Flow, liters/minute Oxygen O2 Source Room air - Labs Labs: Laboratory Tests 10/20/23 10/20/23 10/20/23 10:07 10:16 10:16 WBC 6.3 RBC 3.72 L Hgb 11.6 L Hct 36.7 L MCV 98.7 MCH 31.2 H MCHC 31.6 L RDW 13.6 Plt Count 237 MPV 10.1 Neut # (Auto) 4.9 Lymph # (Auto) 0.9 L Evans # (Auto) 0.5 Eos # (Auto) 0.0 Baso # (Auto) 0.0 Absolute Nucleated RBC 0.00 Nucleated RBC % 0.0 Sodium 139 Potassium 4.1 Chloride 106 Carbon Dioxide 28 Anion Gap 5.0 L BUN 26 H Creatinine 0.9 Estimated GFR (MDRD) 60 L Glucose 104 Calcium 9.4 Magnesium 1.7 Total Bilirubin 0.4 AST 22 ALT 25 Alkaline Phosphatase 58 Total Protein 7.0 Albumin 3.5 Globulin 3.5 Albumin/Globulin Ratio 1.0 Lipase 31 Vitamin B12 257 Urine Color YELLOW Urine Clarity HAZY Urine pH 6.0 Ur Specific [place] 1.020 Urine Protein 30 H Urine Glucose (UA) NEGATIVE Urine Ketones NEGATIVE Urine Occult Blood NEGATIVE Urine Nitrite POSITIVE H Urine Bilirubin NEGATIVE Urine Urobilinogen 0.2 (NORMAL) Ur Leukocyte Esterase NEGATIVE Urine RBC 0-5 Urine WBC 11-25 H Ur Squamous Epith Cells RARE Squamous Urine Bacteria Moderate H Ur Microscopic Review INDICATED Urine Culture Comments INDICATED PD Medical Decision Making - ED course Complexity details: reviewed results (Head CT is wnl for age. No acute process. ), re-evaluated patient (subsequent would follow commands for hand revenue specialist bilaterally. Looks at me when I talk to her, but fairly blank look on face. reportedly baseline from nurse calling dementia care facility.), considered differential (reported witnessed seizure activity wih then fall and struck head. Sz about 30 seconds, then less responsive. Slowly better enroute but severe dementia by history, so responsive but not verbally interaactive enroute nor arrival. ), d/w family (her granddaughter, POA first contact, was not availabe. I left voice mail to call ED when available, with summary of ED care. I talked with aaron, second contact, and we discussed pt baseline level of low function/bedbound mostly, severe dementia. He was okay with treatment plan. ) Reviewed Lab Results: evaluate for other causes of altered mentation but normal CXR, WBC, labs. Glucose and sodium among other lytes area okay. UA showing likely UTI, but she does not have fever, WBC, nor signs of sepsis. The UTI could have affected symstem such that seizure provoked along from her severe dementia. I feel reasonable to start lower dose Keppra pending further eval or consult by PCP with Neurology/etc. The consult might be as simple as a not unexpected sequalae from dementia and continue Rx. But defer to PCP for that. Currently reasonable to treat sz and UTI. Departure - Departure Disposition: 01 Home, Self Care Clinical Impression: New onset seizure, UTI (urinary tract infection) Condition: Stable Record reviewed to determine appropriate education?: Yes Prescriptions: cephALEXin [Keflex] 500 mg PO TID #18 cap levETIRAcetam [Keppra] 250 mg PO BID #60 tablet Comments: Your head CT does not show any acute abnormalities. In the setting of severe dementia, seizures are not too unusual and this may be a progression of that. The description from caregivers sounds fairly distinctly a seizure type episode. Ms. Lee sounds back to her baseline per descriptions right now. For now I would start a antiseizure medication. Through your primary care, the would decide whether to continue on this or get a neurologic consult or such. There is a bladder infection present as well and we can go with cephalexin 3 times daily for the next 5 days to help with that. The culture of the urine will result in a couple of days and will call if we need to modify based on that. Other basic blood tests and blood count and electrolytes and such are good. Continue with your current medications and care level. Regular diet and intake. I Printed out your prescriptions. Let us know if you need them sent to a particular pharmacy electronically.. Return if recurring problems. Forms: PCP List Discharge Date/Time: 10/20/23 13:37
[2023-10-20] MEDS: SODIUM CHLORIDE 0.9% 1,000 ML IV STA (09:33)
--- NOTE | 2023-10-20 10:02 | CT Report ---
PROCEDURE: Head WO INDICATIONS: seizure/syncope today TECHNIQUE: Noncontrast 4.5 mm thick angled axial sections acquired from the foramen magnum to the vertex. For r adiation dose reduction, the following was used: automated exposure control, adjustment of mA and/or kV according to patient size. COMPARISON: 03/27/2023. FINDINGS: Image quality: Excellent. CSF spaces: Basal cisterns are patent. No extra-axial fluid collections. Ventricles are normal in size and shape. Brain: No midline shift. No intracranial masses or hemorrhage. Bojorquez-white matter interface is norm al. Skull and face: Calvarium and visualized facial bones are intact, without suspicious lesions. Sinuses: Visualized sinuses and mastoids are clear. IMPRESSION: No acute intracranial pathology. Reviewed by: Nuan Valdovinos MD on 10/20/2023 10:01 AM PDT Approved by: Naun Valdovinos MD on 10/20/2023 10:01 AM PDT Station ID: [id number]
[2023-10-20 10:20] LABS: BILIRUBIN,URINE NEGATIVE (NEGATIVE); GLUCOSE, URINE (UA) NEGATIVE (NEGATIVE); KETONES,URINE (UA) NEGATIVE (NEGATIVE); LEUKOCYTE ESTERASE, URINE NEGATIVE (NEGATIVE); NITRITE,URINE POSITIVE (NEGATIVE); OCCULT BLOOD,URINE NEGATIVE (NEGATIVE); PROTEIN,URINE 30 mg/dL (NEGATIVE); UROBILINOGEN,URINE 0.2 (NORMAL) E.U./dL (NORMAL)
[2023-10-20 10:20] LABS: BASOPHILS % (AUTO) 0.5 %; EOSINOPHILS % (AUTO) 0.2 %; HCT - HEMATOCRIT 36.7 % (37.0-47.0); HGB - HEMOGLOBIN 11.6 g/dL (12.0-16.0); LYMPHOCYTES # (AUTO) 0.9 10^3/uL (1.5-3.5); LYMPHOCYTES % (AUTO) 14.8 %; MEAN CORPUSCULAR HEMOGLOBIN 31.2 pg (27.0-31.0); MEAN CORPUSCULAR HGB CONC 31.6 g/dL (32.0-36.0); MEAN CORPUSCULAR VOLUME 98.7 fL (81.0-99.0); MEAN PLATELET VOLUME 10.1 fL (7.9-10.8); MONOCYTES # (AUTO) 0.5 10^3/uL (0.0-1.0); MONOCYTES % (AUTO) 7.1 %; NEUTROPHILS # (AUTO) 4.9 10^3/uL (1.5-6.6); NEUTROPHILS % (AUTO) 76.9 %; PLT - PLATELET COUNT 237 10^3/uL (130-450); RED BLOOD COUNT 3.72 10^6/uL (4.20-5.40); RED CELL DISTRIBUTION WIDTH 13.6 % (12.0-15.0); WHITE BLOOD COUNT 6.3 x10^3/uL (4.8-10.8)
[2023-10-20 10:23] LABS: CLARITY,URINE HAZY (CLEAR)
[2023-10-20 10:28] LABS: BACTERIA,URINE Moderate /HPF (None Seen); RBC,URINE 0-5 /HPF (0-5); SQUAMOUS EPITHELIAL CELL,UR RARE Squamous (<= Few)
[2023-10-20 10:56] LABS: ALBUMIN 3.5 g/dL (3.2-5.5); BILIRUBIN,TOTAL 0.4 mg/dL (0.2-1.0); CALCIUM 9.4 mg/dL (8.5-10.3); CREATININE 0.9 mg/dL (0.6-1.3); MAGNESIUM 1.7 mg/dL (1.7-2.3); POTASSIUM 4.1 mmol/L (3.5-4.5)
[2023-10-20] MEDS: cefTRIAXone 1 GM VIAL IVP STA (11:05)
[2023-10-20] MEDS: levETIRAcetam 500 MG/5 ML VIAL IVP STA (11:38)
[2023-10-20 13:40] VITALS: BP 149/89; O2SAT 96
--- NOTE | 2023-10-22 13:23 | ED Physician Documentation ---
ED Addendum - Addendum Addendum: 10/22/23 13:19 The patient's urine culture came back showing E. coli greater than 100,000 CFU's per milliliter resistant to cefazolin. It is a sensitive to cefepime but resistant to ceftriaxone. She was discharged on Keflex. As such I would switch her to a different antibiotic. The culture is sensitive to Cipro and Bactrim. She is not allergic to these. For elderly I would probably go with the Cipro floxacillin to 50 twice a day for 7 days. Her kidney function has been normal but I still would prefer away from the Bactrim. She has history of dementia so I do not feel the Cipro will be noticeably affecting her. It should be short-term. I will send a prescription to her preferred pharmacy and have nursing notify the care facility home place about the change. 10/22/23 13:21
== END 2023-10-20 13:37 | disposition home or self-care (01) ==
LOC: EDUNIT# → ED 08:01
DX: G40.909 Epilepsy, unspecified, not intractable, without status epilepticus (principal); N39.0 Urinary tract infection, site not specified; B96.29 Other Escherichia coli [E. coli] as the cause of diseases classified elsewhere; Z16.19 Resistance to other specified beta lactam antibiotics; I10 Essential (primary) hypertension; Z95.0 Presence of cardiac pacemaker
CPT/HCPCS: 36415; 80053; 81001; 81003; 82607; 83690; 83735; 84425; 85025; 87086; 87181; 96374; 96375; 99284

== ENCOUNTER 2023-10-20 13:28 | Outpatient (CLI) | payer MEDICARE, MEDICAID | END 2023-10-20 23:59 | disposition home or self-care (01) | LOC: EMS 13:28 | PROVIDERS: ATTEND Emergency Medicine | DX: R41.0 Disorientation, unspecified (principal); Z74.01 Bed confinement status; F03.90 Unspecified dementia, unspecified severity, without behavioral disturbance, psychotic disturbance, mood disturbance, and anxiety; R56.9 Unspecified convulsions; N39.0 Urinary tract infection, site not specified | CPT/HCPCS: A0425; A0428 ==

== ENCOUNTER 2023-12-30 15:47 | Outpatient (CLI) | payer MEDICARE, MEDICAID | END 2023-12-30 23:59 | disposition EMS.NT | LOC: EMS 15:47 | DX: R63.8 Other symptoms and signs concerning food and fluid intake (principal) ==